=== PATIENT | male | born 2000 ===

== ENCOUNTER 2022-03-08 18:58 | Emergency (ER) | payer SELFPAY ==
[2022-03-08] MEDS ORDERED: IBUPROFEN 600 MG TAB PO ONE (20:56)
[2022-03-08] MEDS ORDERED: ACETAMINOPHEN 500 MG TAB PO ONE (20:56)
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
[2022-03-08 21:34] VITALS: BP 110/88
== END 2022-03-08 21:33 | disposition home or self-care (01) ==
LOC: ED 18:58
DX: S29.012A Strain of muscle and tendon of back wall of thorax, initial encounter (principal); M62.830 Muscle spasm of back; V89.2XXA Person injured in unspecified motor-vehicle accident, traffic, initial encounter; Y93.89 Activity, other specified; Y92.89 Other specified places as the place of occurrence of the external cause; Y99.8 Other external cause status
CPT/HCPCS: 99282